=== PATIENT | male | born 1985 | race Hispanic/Latino ===

== ENCOUNTER 2023-07-18 03:22 | Observation (INO) | payer SELFPAY ==
[2023-07-18] VITALS (17 sets, daily range): BP systolic 94–156; BP diastolic 25–78
[~2023-07-18] VITALS: Ht 165.1 cm; Wt 76.0 kg
[2023-07-18 04:23] LABS: BASO% 0.1 % (0-3); EOS% 0.1 % (0-8); HEMATOCRIT 40.5 % (39.0-50.0); HEMOGLOBIN 13.9 g/dl (14.0-18.0); IMMATURE GRANULOCYTES 0.1 % (0.0-5.0); MEAN CORPUSCULAR HGB 30.2 pG CALC (26.0-32.0); MEAN CORPUSCULAR HGB CONC 34.3 g/dL CAL (32.0-36.0); MONO% 7.3 % (2-13); NEUT# 14.53 thou/uL (1.82-7.42); NEUT% 87.4 % (42-76); RED BLOOD COUNT 4.6 mill/uL (4.70-6.10); RED CELL DISTRI WIDTH 12.4 % (11.5-15.5)
[2023-07-18 04:33] LABS: ALBUMIN 4.5 g/dL (3.2-5.0); ALKALINE PHOSPHATASE 79 u/l (38-126); ANION GAP 10 (6-22 (CALC)); BILIRUBIN, TOTAL 0.5 mg/dL (0.2-1.3); BUN 13 mg/dL (9-20); BUN/CREATININE RATIO 20 (12-20 (CALC)); CARBON DIOXIDE 26 mmol/l (22-30); CHLORIDE 106 mmol/l (95-108); CREATININE 0.6 mg/dL (0.7-1.3); GFR FOR AFR.AMER. > 60 ML/MIN (>=60 (CALC)); GFR OTHER RACES > 60 ML/MIN (>=60 (CALC)); POTASSIUM 3.9 mmol/l (3.5-5.1); SGOT/AST 34 u/l (17-59); SODIUM 137 mmol/l (137-146); TOTAL PROTEIN 7.3 g/dL (6.3-8.2)
[2023-07-18 05:19] LABS: URINE BILIRUBIN - DIPSTICK Negative (NEGATIVE); URINE BLOOD DIPSTICK Negative (NEGATIVE); URINE GLUCOSE - DIPSTICK Negative (NEGATIVE); URINE KETONE Negative (NEGATIVE); URINE LEUK ESTERASE Negative (NEGATIVE); URINE NITRITE - DIPSTICK Negative (Negative); URINE PROTEIN - DIPSTICK Negative (NEG-TRACE); URINE SPECIFIC GRAVITY 1.025; URINE UROBILINOGEN - DIPSTICK 0.2 E.U./dL (0.2)
[2023-07-18 05:20] LABS: URINE COLOR Yellow
[2023-07-19 03:53] VITALS: BP 115/60
[2023-07-19 07:10] VITALS: BP 113/67
[2023-07-19] MEDS ORDERED: PERCOCET 5/325M1 TAB PO (09:18)
== END 2023-07-19 13:19 | disposition home or self-care (01) | DRG 399 ==
LOC: ED 03:22 → ED-I 06:45 → ED 08:09 → ORM 08:10 → MS2 12:00
PROVIDERS: Emergency Medicine; ADMIT Surgery; ATTEND Surgery
PROC: 0DTJ4ZZ Resection of Appendix, Percutaneous Endoscopic Approach (ICD-10-PCS; principal; 2023-07-18)
DX: K35.80 Unspecified acute appendicitis (principal); Z20.822 Contact with and (suspected) exposure to COVID-19
CPT/HCPCS: J0131; Q9967

== ENCOUNTER 2023-07-22 08:00 | Observation (INO) | payer SELFPAY ==
[~2023-07-22] VITALS: Ht 165.1 cm; Wt 66.0 kg
[2023-07-22] VITALS (16 sets, daily range): BP systolic 117–133; BP diastolic 68–82
[~2023-07-22 08:00] MED LIST: PERCOCET 5/325M1 TAB PO
[2023-07-22 08:50] LABS: BASO% 0.2 % (0-3); EOS% 0.2 % (0-8); HEMATOCRIT 36.8 % (39.0-50.0); HEMOGLOBIN 12.6 g/dl (14.0-18.0); IMMATURE GRANULOCYTES 0.3 % (0.0-5.0); LYMPH% 8.3 % (15-41); MEAN CELL VOLUME 86.6 fL CALC (80.0-100.0); MEAN CORPUSCULAR HGB 29.6 pG CALC (26.0-32.0); MEAN CORPUSCULAR HGB CONC 34.2 g/dL CAL (32.0-36.0); MONO% 10.4 % (2-13); NEUT# 10.22 thou/uL (1.82-7.42); NEUT% 80.6 % (42-76); RED BLOOD COUNT 4.25 mill/uL (4.70-6.10); RED CELL DISTRI WIDTH 12.4 % (11.5-15.5)
[2023-07-22 09:14] LABS: ALKALINE PHOSPHATASE 104 u/l (38-126); ANION GAP 8 (6-22 (CALC)); BILIRUBIN, TOTAL 0.7 mg/dL (0.2-1.3); BUN 8 mg/dL (9-20); BUN/CREATININE RATIO 11 (12-20 (CALC)); CARBON DIOXIDE 31 mmol/l (22-30); CHLORIDE 101 mmol/l (95-108); CREATININE 0.7 mg/dL (0.7-1.3); GFR FOR AFR.AMER. > 60 ML/MIN (>=60 (CALC)); GFR OTHER RACES > 60 ML/MIN (>=60 (CALC)); LIPASE 20 u/l (23-300); POTASSIUM 3.2 mmol/l (3.5-5.1); SGOT/AST 27 u/l (17-59); SODIUM 137 mmol/l (137-146); TOTAL PROTEIN 6.7 g/dL (6.3-8.2)
[2023-07-22 09:21] LABS: ALBUMIN 3.5 g/dL (3.2-5.0)
[2023-07-22 13:23] LABS: URINE BILIRUBIN - DIPSTICK Negative (NEGATIVE); URINE BLOOD DIPSTICK Trace-lysed (NEGATIVE); URINE GLUCOSE - DIPSTICK Negative (NEGATIVE); URINE KETONE Trace mg/dL (NEGATIVE); URINE LEUK ESTERASE Negative (NEGATIVE); URINE NITRITE - DIPSTICK Negative (Negative); URINE PROTEIN - DIPSTICK 30 mg/dL (NEG-TRACE); URINE SPECIFIC GRAVITY 1.015; URINE UROBILINOGEN - DIPSTICK 0.2 E.U./dL (0.2)
[2023-07-22 13:26] LABS: URINE COLOR Yellow
[2023-07-22 13:40] LABS: URINE RBC 0-2 RBC/hpf (0-5)
[2023-07-23 04:07] VITALS: BP 122/76
[2023-07-23 07:02] VITALS: BP 119/68
[2023-07-23 15:54] VITALS: BP 123/74
[2023-07-23 19:18] VITALS: BP 131/78
[2023-07-24 04:12] VITALS: BP 115/75
[2023-07-24 07:33] VITALS: BP 116/66
[2023-07-24 07:56] LABS: HEMATOCRIT 33.8 % (39.0-50.0); HEMOGLOBIN 11.6 g/dl (14.0-18.0); MEAN CORPUSCULAR HGB 30.2 pG CALC (26.0-32.0); MEAN CORPUSCULAR HGB CONC 34.3 g/dL CAL (32.0-36.0); RED BLOOD COUNT 3.84 mill/uL (4.70-6.10); RED CELL DISTRI WIDTH 12.6 % (11.5-15.5)
[2023-07-24] MEDS ORDERED: AMOX/K CLAV875 M1 PO (11:14)
== END 2023-07-24 12:10 | disposition home or self-care (01) | DRG 392 ==
LOC: ED 08:00 → ED-I 10:25 → ED 10:26 → ED-I 10:45 → ED 10:47 → MS2 15:47
PROVIDERS: Family Medicine; ADMIT Surgery; ATTEND Surgery
DX: K52.9 Noninfective gastroenteritis and colitis, unspecified (principal); Z90.49 Acquired absence of other specified parts of digestive tract
CPT/HCPCS: G0378; Q9967